=== PATIENT | female | born 1990 | race Caucasian/White ===

== ENCOUNTER 2016-12-16 17:16 | Outpatient (CLI) | payer OTHER ==
[~2016-12-16] VITALS: Ht 167.6 cm; Wt 77.4 kg
[~2016-12-16 17:16] MED LIST: PREN1TAB49 PO
[2016-12-16 17:29] VITALS: Ht 167.6 cm; Wt 77.4 kg
[2016-12-16 17:30] VITALS: BP 113/75; PULSE 86; RESP 19
--- NOTE | 2016-12-16 18:22 | PN ---
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
[2016-12-16 18:29] LABS: URINE BLOOD (Dip) POC Negative (NEGATIVE)
--- NOTE | 2016-12-16 20:25 | TRIAGE ---
OB Triage Datetime Report Generated by CPN: 12/16/2016 20:25 Datetime: 12/16/2016 19:06 Stage of : OB Triage Headache: Denies Breath Sounds, Left: Clear and Equal Breath Sounds, Right: Clear and Equal RUQ Epigastric Pain: Denies Labor Evaluation Frequency: NONE Monitor Mode: External Resting Tone [place]: Relaxed Heart Rate FHR Baseline Rate: 125 Monitor Mode: External US Variability: Moderate 6-25 bpm Accelerations: 15X15 Decelerations: None Pain Assessment Pain Scale: 6 Pain Presence: Constant Pain Type: Ache Pain Location: Abdomen Pain Goal: 3 Pain Relief Measures: Comfort Measures Vaginal Exam Membrane Status: Intact Datetime: 12/16/2016 18:30 Stage of : OB Triage Headache: Denies Breath Sounds, Left: Clear and Equal Breath Sounds, Right: Clear and Equal RUQ Epigastric Pain: Denies Labor Evaluation Frequency: NONE Monitor Mode: External Resting Tone [place]: Relaxed Heart Rate FHR Baseline Rate: 125 Monitor Mode: External US Variability: Moderate 6-25 bpm Accelerations: 15X15 Decelerations: None Category: Category I Pain Assessment Pain Scale: 6 Pain Presence: Constant Pain Type: Ache Pain Location: Abdomen Pain Goal: 3 Pain Relief Measures: Comfort Measures Vaginal Exam Membrane Status: Intact Datetime: 12/16/2016 18:25 Pain Assessment Pain Scale: 7 Pain Presence: Constant Pain Goal: 3 Pain Assessment Comments: PT STATES HAVING MORE PAIN NOW THAT SHE CAME BACK TO BED Datetime: 12/16/2016 18:02 Headache: Denies Blurred Vision: No Breath Sounds, Left: Clear and Equal Breath Sounds, Right: Clear and Equal RUQ Epigastric Pain: Denies Facial Edema: 1+ Labor Evaluation Frequency: NONE Resting Tone [place]: Relaxed Heart Rate FHR Baseline Rate: 125 Monitor Mode: External US Variability: Moderate 6-25 bpm Accelerations: 15X15 Decelerations: None Category: Category I Pain Assessment Pain Scale: 6 Pain Presence: Constant Pain Type: Ache Pain Location: Abdomen Pain Goal: 3 Pain Relief Measures: Comfort Measures Pain Assessment Comments: PT C/O LEFT PELON EABDOMINAL PAIN Vaginal Exam Membrane Status: Intact Datetime: 12/16/2016 17:40 Stage of : OB Triage Headache: Denies Breath Sounds, Left: Clear and Equal Breath Sounds, Right: Clear and Equal RUQ Epigastric Pain: Denies Labor Evaluation Frequency: NONE Resting Tone [place]: Relaxed Heart Rate FHR Baseline Rate: 125 Monitor Mode: External US Variability: Moderate 6-25 bpm Accelerations: 15X15 Decelerations: None Pain Assessment Pain Scale: 6 Pain Presence: Constant Pain Type: Ache Pain Location: Abdomen Pain Goal: 3 Pain Relief Measures: Comfort Measures Vaginal Exam Membrane Status: Intact Datetime: 12/16/2016 17:34 Stage of : OB Triage Time Provider Notified: DR THORPE FOR DR WHITE IN THE OR, SHE WILL COME SEE PT AFTER SHES DONE Datetime: 12/16/2016 17:33 EGA: 34.5 Datetime: 12/16/2016 17:20 Stage of : OB Triage Maternal Assessment Level of Consciousness: Fully Conscious DTR's/Clonus: DTRs 2+; No Clonus Headache: Denies Blurred Vision: No Respiratory Effort: Unlabored; Regular Rhythm; Equal Expansion Breath Sounds, Left: Clear and Equal Breath Sounds, Right: Clear and Equal Nausea/Vomiting: Denies RUQ Epigastric Pain: Denies Lower Extremities Edema: None Degree: None Upper Extremities Edema: None Degree: None Facial Edema: None Temperature Route: Axillary Fall Risk Assessment History of Falling: (0) No Secondary Diagnosis: (0) No Ambulatory Aid: (0) Bedrest/Nurse Assist IV Therapy: (0) No Gait: (0) Normal/Bedrest/Immobile Mental Status: (0) Oriented to Own Ability Fall Score: 0 Fall Risk Score Definition: No Risk: No action required Datetime: 12/16/2016 17:15 Time of Arrival: 12/16/2016 17:15 Arrived By: Ambulatory Arrived From: Home Chief Complaint: PT CAME IN C/O LEFT LOWER SIDE ABDOMINAL PAIN RADIATING TO HER LEG SINCE 1400 TOD AYS. DENIES ANY TOEHR C/O AT THIS TIME AND STATES + FM Movement: Present Contractions: Denies/Absent Rupture of Membranes: Denies Vaginal Bleeding: None Vaginal Discharge: Denies Recent Sexual Intercouse: Denies Abdominal Trauma: Not Applicable Patient Complaints: Other Additional Patient Complaints: NONE Initial Plan: MONITOR
== END 2016-12-16 20:17 | disposition home or self-care (01) ==
LOC: L-D 17:16 → OBT 17:16
PROVIDERS: ATTEND Specialist
DX: O26.893 Other specified pregnancy related conditions, third trimester (principal); R10.2 Pelvic and perineal pain; Z3A.34 34 weeks gestation of pregnancy
CPT/HCPCS: 81003; Z7500; Z7610; G0463

== ENCOUNTER 2017-01-08 09:50 | Outpatient (CLI) | payer OTHER ==
[~2017-01-08] VITALS: Ht 167.6 cm; Wt 77.3 kg
[2017-01-08 10:07] VITALS: BP 113/66; PULSE 96; RESP 18
--- NOTE | 2017-01-08 10:49 | RADRPT ---
PROCEDURE: OB ultrasound for biophysical profile CLINICAL INDICATION: Decreased movement TECHNIQUE: Multiple sonographic images of the pelvis were obtained. Transabdominal views of the g ravid uterus are available for review. The images were reviewed on a PACS workstation. COMPARISON: None FINDINGS: breathing movement = 2/2 tone = 2/2 motion = 2/2 SHRUTI = 2/2 SHRUTI = 8.9 cm Single live intrauterine with cardiac activity of 121 bpm. position is cephal ic. The placenta is posterior. IMPRESSION: 1. Single live intrauterine gestation. 2. Biophysical profile = 8/8. 3. SHRUTI = 8.9 cm. RPTAT: HH .Rachel Ratliff MD, MD Date Time Electronically viewed and signed by .Rachel Ratliff MD, on 01/08/2017 10:48 .G/
--- NOTE | 2017-01-08 11:06 | TRIAGE ---
OB Triage Datetime Report Generated by CPN: 01/08/2017 11:06 Datetime: 01/08/2017 10:21 Labor Evaluation Frequency: 0 Monitor Mode: External Pattern: Normal: <= 5 Contractions in 10 Minutes Resting Tone [place]: Relaxed Heart Rate FHR Baseline Rate: 125 Monitor Mode: External US FHR Baseline Changes: No Baseline Change Variability: Moderate 6-25 bpm Accelerations: 15X15 Decelerations: None Datetime: 01/08/2017 10:09 Time of Arrival: 01/08/2017 09:43 EGA: 38.0 Arrived By: Ambulatory Arrived From: Home Chief Complaint: DECREASED MOVEMENT FROM 0830; PT AWOKE, DIDN'T FEEL MOVEMENT; RESTED ON SIDE AND DRANK WATER - ONLY FELT 2 MOVEMENTS IN 1.5HOURS. Movement: Decreased Contractions: Denies/Absent Rupture of Membranes: Denies Vaginal Bleeding: None Vaginal Discharge: Present Patient Complaints: Other Time Provider Notified: 01/08/2017 10:18 Provider Notified: DR. VALENTE Initial Plan: EFM x2 Datetime: 01/08/2017 10:01 Stage of : OB Triage Assessment Type: Triage Maternal Assessment Level of Consciousness: Fully Conscious Headache: Denies Blurred Vision: No Respiratory Effort: Unlabored; Regular Rhythm; Equal Expansion Breath Sounds, Left: Clear and Equal Breath Sounds, Right: Clear and Equal Nausea/Vomiting: Denies RUQ Epigastric Pain: Denies Lower Extremities Edema: None Degree: None Upper Extremities Edema: None Degree: None Facial Edema: None Temperature Route: Oral Fall Risk Assessment History of Falling: (0) No Secondary Diagnosis: (0) No Ambulatory Aid: (0) Bedrest/Nurse Assist IV Therapy: (0) No Gait: (0) Normal/Bedrest/Immobile Mental Status: (0) Oriented to Own Ability Fall Score: 0 Fall Risk Score Definition: No Risk: No action required Pain Assessment Pain Scale: 0 Pain Presence: None/Denies Pain Type: N/A Datetime: 12/16/2016 20:05 Stage of : OB Triage Labor Evaluation Frequency: OCC Monitor Mode: External Duration (sec)2399: 50-90 Quality: Mild Pattern: Normal: <= 5 Contractions in 10 Minutes Contraction Comments: SOME IRRITABILITY NOTED Heart Rate FHR Baseline Rate: 120 Monitor Mode: External US Variability: Moderate 6-25 bpm Accelerations: 15X15 Decelerations: None Category: Category I Datetime: 12/16/2016 17:33 EGA: 34.5 Datetime: 12/16/2016 17:20 Fall Score: 0 Fall Risk Score Definition: No Risk: No action required Datetime: 12/16/2016 17:15 Time Provider Notified: 12/16/2016 18:00 Provider Notified: DR. THORPE
--- NOTE | 2017-01-08 11:29 | HP ---
Date/Time of Note Date/Time of Note DATE: 01/08/17 TIME: 11:26 OB - History Hx of Present Free Text/Dictation OB Triage Pt is a 26yo at 38+0 who presents c/o decreased FM since waking this morning at 0830. Pt states she drank cold water and then layed down but only felt 2 movements over the next hour and a half. Since arriving to triage, fetus has been much more active. Denies LOF, VB or UCs. PROCEDURE: OB ultrasound for biophysical profile CLINICAL INDICATION: Decreased movement TECHNIQUE: Multiple sonographic images of the pelvis were obtained. Transabdominal views of the gravid uterus are available for review. The images were reviewed on a PACS workstation. COMPARISON: None FINDINGS: breathing movement = 2/2 tone = 2/2 motion = 2/2 SHRUTI = 2/2 SHRUTI = 8.9 cm Single live intrauterine with cardiac activity of 121 bpm. position is cephalic. The placenta is posterior. IMPRESSION: 1. Single live intrauterine gestation. 2. Biophysical profile = 8/8. 3. SHRUTI = 8.9 cm. Estimated Due Date: Jan 22, 2017 : 2 Para: 1 Care: Good Care Obstetrical Complications: None Medical Complications: None Past Family/Social History * chart not available. OB Admission Exam Vital Signs Vital Signs Vital Signs Date Time Temp Pulse Resp B/P Pulse Ox O2 Delivery O2 Flow Rate FiO2 01/08/17 10:07 98.1 96 18 113/66 98 Room Air Physical Exam Heart Rate: 120's Accelerations: Accelerations Present Decelerations: No Decelerations Varibility: Moderate Contractions on Admission: None OB Assessment/Plan Other Assessment: Decreased FM with reactive NST, normal SHRUTI and 8/8 BPP Other plan: Pt appropriate for d/c home FKC precautions reviewed as well as labor and ROM precautions Questions answered to patient's satisfaction Pt will f/up as scheduled on 01/13/17 with her primary OB KAYODE VALENTE MD Jan 08, 2017 11:29
== END 2017-01-08 11:02 | disposition home or self-care (01) ==
LOC: OBT 09:50 → L-D 09:51 → OBT 11:02
PROVIDERS: ATTEND Obstetrics & Gynecology
DX: O36.8130 Decreased fetal movements, third trimester, not applicable or unspecified (principal); Z3A.38 38 weeks gestation of pregnancy
CPT/HCPCS: 76818; Z7500; G0463

== ENCOUNTER 2017-01-14 20:06 | Outpatient (CLI) | payer OTHER ==
[~2017-01-14] VITALS: Ht 167.6 cm; Wt 78.8 kg
[2017-01-14] MEDS ORDERED: ONDANSETRON 4 MG INJ IV STA (20:24)
[2017-01-14 20:26] VITALS: Ht 167.6 cm; Wt 78.8 kg
[2017-01-14] MEDS ORDERED: morphine 10 MG INJ IM ONE (20:30)
[2017-01-14] MEDS: LACTATED RINGER'S 1,000 ML IV SCH ×2 (20:43→21:19)
--- NOTE | 2017-01-14 21:18 | PN ---
Date/Time of Note Date/Time of Note DATE: 01/14/17 TIME: 21:12 OB Subjective Subjective Subjective 26 yo P1 @ 38.6 wks, c/o n/v, ctx good Fm, no LOF, no VB OB Objective Objective Objective VS: 128/77, 98.8 Abdomen- gravid, n/t SVE- FT/thick/post FHT- 130's; Cat I Brethren- irreg ctx Abdomen: WNL Extremities: Normal Cervical Dilatation: None Effacement: 0% Station: [place] Heart Rate: 130's Accelerations: Accelerations Present Decelerations: No Decelerations Contractions on Admission: 6-10 Minutes Apart Intensity: Firm OB Assessment/Plan Other Assessment: 26 yo P1 @ term, r/o labor reassuring status Other plan: gave morphine; did not help w pain; gave patient stadol; will recheck in 2hrs DORINA LORA MD Jan 14, 2017 21:18
[2017-01-14] MEDS ORDERED: BUTORPHANOL 2 MG INJ IV ONE (21:30)
--- NOTE | 2017-01-15 00:48 | TRIAGE ---
OB Triage Datetime Report Generated by CPN: 01/15/2017 00:48 Datetime: 01/15/2017 00:39 Labor Evaluation Frequency: 5-7 Monitor Mode: External Duration (sec)2399: 60-80 Pattern: Normal: <= 5 Contractions in 10 Minutes Heart Rate FHR Baseline Rate: 120 Monitor Mode: External US FHR Baseline Changes: No Baseline Change Variability: Moderate 6-25 bpm Accelerations: 15X15 Decelerations: None Datetime: 01/15/2017 00:31 Monitor Mode: Palpation Resting Tone [place]: Relaxed Contraction Comments: PT. STATES SHE FEELS 'OK' TO GO HOME Datetime: 01/15/2017 00:12 Vaginal Exam Dilatation (cms): 0.5 Effacement (%): 50 Station: -3 Exam By: G.HERMANN Cervix, Consistency: Firm Datetime: 01/15/2017 00:00 Labor Evaluation Frequency: OCC Monitor Mode: External Duration (sec)2399: 30-60 Pattern: Normal: <= 5 Contractions in 10 Minutes Heart Rate FHR Baseline Rate: 115 Monitor Mode: External US FHR Baseline Changes: No Baseline Change Variability: Minimal - Undetectable to <=5 bpm Datetime: 01/14/2017 23:41 Pain Assessment Pain Assessment Comments: PT. SLEEPING WITH S/O AT BEDSIDE Datetime: 01/14/2017 23:00 Labor Evaluation Frequency: OCC Monitor Mode: External Duration (sec)2399: 40-60 Pattern: Normal: <= 5 Contractions in 10 Minutes Heart Rate FHR Baseline Rate: 115 Monitor Mode: External US FHR Baseline Changes: No Baseline Change Variability: Minimal - Undetectable to <=5 bpm Accelerations: None Decelerations: None Category: Category II Comments: S/P STADOL Datetime: 01/14/2017 22:53 Pain Assessment Pain Assessment Comments: PT. STATES 'I FEEL RELAXED, BUT I STILL HAVE PAIN' Datetime: 01/14/2017 22:34 Monitor Mode: External US Datetime: 01/14/2017 22:00 Labor Evaluation Frequency: 4-7 Monitor Mode: External Duration (sec)2399: 40-60 Pattern: Normal: <= 5 Contractions in 10 Minutes Contraction Comments: WITH IRRITABILITY Monitor Mode: External US FHR Baseline Changes: No Baseline Change Variability: Minimal - Undetectable to <=5 bpm Decelerations: None Category: Category II Comments: S/P STADOL Datetime: 01/14/2017 21:16 Pain Assessment Pain Assessment Comments: STADOL APPEARS SOMEWHAT EFFECTIVE, PT. STILL MOANING WITH EYES CLOSED Datetime: 01/14/2017 21:13 Monitor Mode: Palpation Quality: Mild Contraction Comments: PALPATION WITH PT. MOANING, MILD CONTRACTIONS FELT, OTHERWISE ABD SOFT Datetime: 01/14/2017 21:12 Pain Assessment Pain Assessment Comments: S/P STADOL, PT. WITH EYES CLOSED, RESPIRATIONS VISIBLE Datetime: 01/14/2017 21:00 Labor Evaluation Frequency: INDETERMINATE Monitor Mode: External Pattern: Normal: <= 5 Contractions in 10 Minutes Contraction Comments: CONSTANT MATERNAL MOVEMENT Heart Rate FHR Baseline Rate: 135 Monitor Mode: External US FHR Baseline Changes: No Baseline Change Variability: Moderate 6-25 bpm Accelerations: 15X15 Decelerations: None Category: Category I Vaginal Exam Dilatation (cms): 0.0 Effacement (%): 0 Station: -2 Exam By: DR. LORA Datetime: 01/14/2017 20:57 Monitor Mode: Palpation Resting Tone [place]: Relaxed Datetime: 01/14/2017 20:54 Pain Assessment Pain Assessment Comments: PT. MOANING IN PAIN Datetime: 01/14/2017 20:52 Monitor Mode: Palpation Resting Tone [place]: Relaxed Datetime: 01/14/2017 20:44 Nausea/Vomiting: Present Datetime: 01/14/2017 20:33 Monitor Mode: Palpation Resting Tone [place]: Relaxed Datetime: 01/14/2017 20:30 Labor Evaluation Frequency: INDETERMINATE Monitor Mode: External Pattern: Normal: <= 5 Contractions in 10 Minutes Contraction Comments: CONSTANT MATERNAL MOVEMENT Heart Rate FHR Baseline Rate: 135 Monitor Mode: External US FHR Baseline Changes: No Baseline Change Variability: Minimal - Undetectable to <=5 bpm Accelerations: None Decelerations: None Datetime: 01/14/2017 20:21 Vaginal Exam Dilatation (cms): 0.5 Effacement (%): 60 Station: -2 Exam By: franklin rn Cervix, Consistency: Soft Presentation 'A': Cephalic Datetime: 01/14/2017 20:16 Stage of : OB Triage Datetime: 01/14/2017 20:10 Assessment Type: Triage Maternal Assessment Level of Consciousness: Fully Conscious Headache: Denies Blurred Vision: No Respiratory Effort: Unlabored; Regular Rhythm; Equal Expansion Breath Sounds, Left: Clear and Equal Breath Sounds, Right: Clear and Equal Nausea/Vomiting: Present RUQ Epigastric Pain: Denies Facial Edema: None Fall Risk Assessment History of Falling: (0) No Secondary Diagnosis: (0) No Ambulatory Aid: (0) Bedrest/Nurse Assist IV Therapy: (0) No Gait: (0) Normal/Bedrest/Immobile Mental Status: (0) Oriented to Own Ability Fall Score: 0 Fall Risk Score Definition: No Risk: No action required Datetime: 01/14/2017 20:09 Time of Arrival: 01/14/2017 20:04 EGA: 38.6 Arrived By: Wheelchair Arrived From: Home Chief Complaint: N/V X1HOUR WITH LEFT LEG NUMBNESS Movement: Present Contractions: Unsure Rupture of Membranes: Denies Vaginal Discharge: Denies Recent Sexual Intercouse: Denies Abdominal Trauma: Not Applicable Patient Complaints: Cramping; Nausea; Vomiting; Other Additional Patient Complaints: RADIATING NUMBNESS DOWN LEFT LEG Time Provider Notified: 01/14/2017 20:16 Provider Notified: Lora Initial Plan: EFM,SVE,CALL OB Datetime: 01/08/2017 10:09 EGA: 38.0 Datetime: 01/08/2017 10:01 Fall Score: 0 Fall Risk Score Definition: No Risk: No action required Datetime: 12/16/2016 17:33 EGA: 34.5 Datetime: 12/16/2016 17:20 Fall Score: 0 Fall Risk Score Definition: No Risk: No action required
== END 2017-01-15 00:50 | disposition home or self-care (01) ==
LOC: OBT 20:06 → L-D 20:07 → OBT 01-15 00:50
PROVIDERS: ATTEND Obstetrics & Gynecology
DX: O21.2 Late vomiting of pregnancy (principal); Z3A.36 36 weeks gestation of pregnancy
CPT/HCPCS: 96360; 96361; 96372; 96374; 96375; J0595; J2270; J2405; J7120; Z7500; G0463

== ENCOUNTER 2018-10-02 11:15 | Emergency (ER) | END 2018-10-02 12:58 | disposition home or self-care (01) ==

== ENCOUNTER 2019-01-11 11:21 | Emergency (ER) | payer OTHER ==
[~2019-01-11] VITALS: Wt 80.0 kg
[~2019-01-11 11:21] MED LIST changes: +IBUP-1561 PO
[2019-01-11 11:24] VITALS: BP 111/66; PULSE 66; RESP 18
[2019-01-11] MEDS ORDERED: FAMO-96 PO (12:40)
[2019-01-11] MEDS ORDERED: NAPR-985 PO (12:40)
[2019-01-11] MEDS ORDERED: MED4DP PO (12:40)
[2019-01-11] MEDS ORDERED: PROM6.2515 PO (12:41)
--- NOTE | 2019-01-11 12:46 | ERD ---
ER Documentation Chief Complaint Chief Complaint SORE THROAT,COUGH HPI 28-year-old female presenting with sore throat and cough. Patient has some irritation in her throat feels like her throat was closing. She said this happened last night and it resolved spontaneously with no medications. Denies any fevers. Denies any rashes. Denies medical problems. NKDA. Surgical history denies. Social history denies. ROS All systems reviewed and are negative except as per history of present illness. Medications Home Meds Active Scripts Promethazine Hcl* (Promethazine Hcl* Syrup) 6.25 Mg/5 Ml Syrup, 6.25 MG PO Q6H PRN for COUGH, #100 ML Prov:MEAGHAN COOK PA-C 01/11/19 Naproxen* (Naprosyn*) 500 Mg Tablet, 500 MG PO BID PRN for PAIN AND/OR IN FLAMMATION, #30 TAB Prov:MEAGHAN COOK PA-C 01/11/19 Methylprednisolone* (Medrol* DOSE PACK) 4 Mg/Dose-Pack Tab.ds.pk, 4 MG PO . DIRECTED, #1 PACKET Prov:MEAGHAN COOK PA-C 01/11/19 Famotidine* (Pepcid*) 20 Mg Tablet, 20 MG PO BID for 4 Days, #30 TAB Prov:MEAGHAN COOK PA-C 01/11/19 Ibuprofen* (Motrin*) 400 Mg Tab, 400 MG PO Q6H PRN for PAIN AND OR ELEVATED TEMP for 7 Days, #30 TAB 0 Refills Prov:CHANELL WARREN 10/02/18 Reported Medications Vits W-Ca,Fe,Fa(<1MG) () 1 Tab Tablet, 1 TAB PO DAILY 11/09/12 Allergies Allergies: Coded Allergies: No Known Allergies (Unverified Allergy, Unknown, 01/14/17) PMhx/Soc Hx Alcohol Use: No Hx Substance Use: No Hx Tobacco Use: No FmHx Family History: No diabetes, No coronary disease, No other Physical Exam Vitals Vital Signs Date Temp Pulse Resp B/P (MAP) Pulse Ox O2 O2 Flow FiO2 Time Delivery Rate 01/11/19 97.8 66 18 111/66 99 11:24 (81) Physical Exam GENERAL: The patient is well-appearing, well-nourished, in no acute distress HEENT: Atraumatic. Conjunctivae are pink. Pupils equal, round, and reactive to light. There is no scleral icterus. Tympanic membranes clear bilaterally. Oropharynx clear. NECK: C-spine is soft and supple. There is no meningismus. There is no cervical lymphadenopathy. CHEST: Clear to auscultation bilaterally. There are no rales, wheezes or rhonchi. HEART: Regular rate and rhythm. No murmurs, clicks, rubs or gallops. Procedures/MDM DM: 28-year-old female presenting with sore throat. Patient's exam is non- concerning. Patient vitals are stable. Patient may have acid reflux is causing irritation to the throat. Patient is told if symptoms change or worsen to return immediately to the ER. I have low suspicion for bacterial infection. Patient is told if symptoms change or worsen to return immediately to the ER. All questions answered at discharge Departure Diagnosis: Primary Impression: Sore throat Condition: Stable Patient Instructions: When You Have a Sore Throat Referrals: [facility] YOU HAVE RECEIVED A MEDICAL SCREENING EXAM AND THE RESULTS INDICATE THAT YOU DO NOT HAVE A CONDITION THAT REQUIRES URGENT TREATMENT IN THE EMERGENCY DEPARTMENT. FURTHER EVALUATION AND TREATMENT OF YOUR CONDITION CAN WAIT UNTIL YOU ARE SEEN IN YOUR DOCTORS OFFICE WITHIN THE NEXT 1-2 DAYS. IT IS YOUR RESPONSIBILITY TO MAKE AN APPOINTMENT FOR FOLOW-UP CARE. IF YOU HAVE A PRIMARY DOCTOR --you should call your primary doctor and schedule an appointment IF YOU DO NOT HAVE A PRIMARY DOCTOR YOU CAN CALL OUR PHYSICIAN REFERRAL HOTLINE AT IF YOU CAN NOT AFFORD TO SEE A PHYSICIAN YOU CAN CHOSE FROM THE FOLLOWING [facility] [address] [facility] [address] [facility] [address] [facility] [facility] [address] [facility] [address] [facility] [address] [facility] [facility]. [address] Additional Instructions: FOLLOW UP WITH YOUR PRIMARY CARE PHYSICIAN TOMORROW.Return to this facility if you are not improving as expected. MEAGHAN COOK PA-C Jan 11, 2019 12:46
== END 2019-01-11 14:58 | disposition home or self-care (01) ==
LOC: FTE 11:21
DX: J02.9 Acute pharyngitis, unspecified (principal)
CPT/HCPCS: 99283